=== PATIENT | female | born 1985 | race Caucasian/White ===

== ENCOUNTER 2020-03-21 10:32 | Emergency (ER) | payer MEDICAID ==
[~2020-03-21] VITALS: Ht 149.9 cm; Wt 84.4 kg
[2020-03-21 10:44] VITALS: Ht 149.9 cm; Wt 84.4 kg
[2020-03-21 15:51] VITALS: BP 148/71
== END 2020-03-21 10:55 | disposition home or self-care (01) ==
LOC: ED 10:32
DX: N39.0 Urinary tract infection, site not specified (principal); E66.9 Obesity, unspecified; F41.9 Anxiety disorder, unspecified; Z68.37 Body mass index [BMI] 37.0-37.9, adult; Z98.890 Other specified postprocedural states; Z90.89 Acquired absence of other organs
CPT/HCPCS: 82962